=== PATIENT | male | born 1985 | race Caucasian/White ===

== ENCOUNTER 2019-01-26 08:52 | Emergency (ER) | payer MEDICAID, SELFPAY ==
--- NOTE | 2019-01-26 09:23 | NUR.NOTE ---
pt developed a fever and nausea last night that has progresses. recorded a fever of 102+ this am and has been taking naproxen
[2019-01-26 09:26] VITALS: BP 149/73; PULSE 104; RESP 15; TEMP 38.2; O2SAT 99
[2019-01-26] MEDS: Acetaminophen 500 MG TAB 1000 MG PO (09:40)
--- NOTE | 2019-01-26 09:45 | ED.GENADUL_ITS ---
Discharge Plan Disposition Patient Disposition: HOME Condition: Good Discharge Details Chief Complaint: Fever Clinical Impression: Viral URI Primary Care Provider: Chris Caraballo ED Provider: Joe Thacker Home Meds and New Rx's Prescriptions: New oseltamivir [Tamiflu] 75 mg capsule 75 mg PO BID 5 Days Qty: 10 RF: 0 No Action sulfamethoxazole-trimethoprim [Bactrim DS] 1 EACH tablet 1 tab-cap PO Q12H Qty: 14 RF: 0 hydrocortisone [Proctosol HC] 28.35 GM cream with perineal applicator 28.35 gm RC BID RF: 0 tramadol 100 MG tablet extended release 24 hr 100 mg PO Q6H Qty: 15 RF: 0 amoxicillin 500 MG tablet 500 mg PO TID Qty: 21 RF: 0 Discharge Instructions Instructions: Upper Respiratory Infection (ED) Additional Instructions: Please take 1000 mg of Tylenol and 800 mg of ibuprofen every 6 hours. Please drink plenty of fluids, at least 10-12 cups/day. If you notice any worsening of your symptoms, or any new symptoms such as vomiting, diarrhea, fever, chills, shortness of breath, chest pain, numbness, weakness, or fainting , please return immediately to the emergency department for reevaluation. Please follow up with your primary care provider as soon as possible for reassessment and reevaluation. As always, it was a pleasure participating in your medical care today. Stand Alone Forms: Work Release Referrals: Chris Caraballo, DO [Primary Care Provider] - Medical Decision Making This is a pleasant 33-year-old male who presents for signs and symptoms of URI, his symptoms started less than 12 hours ago, he has not had his flu shot. He shows no concerning clinical red flags of meningitis, severe neck pain, vomiting or diarrhea. He is able to tolerate p.o. well. Currently he looks well and shows signs and symptoms concerning for the flu. We will evaluate for the flu as he would be a candidate for Tamiflu. Recommend continued hydration, NSAIDs for fever, and rest. 9:54 Patient's influenza has returned positive. Clinically he still looks well I feel is a candidate for outpatient therapy. No concerning red flags or risk factors. Patient will be prescribed Tamiflu. I have extensively reviewed the treatment plan and discharge instructions with the patient. I have addressed all patient concerns at this time. The patient was made aware of what symptoms to monitor for that would warrant a return to the emergency department. Discussed the plan with the patient, they demonstrate verbal understanding and agreement with our assessment and plan at this time. HPI General Date/Time Provider Initiated Documentation: 01/26/19 09:31 . HPI Narrative: This is a 33-year-old male with no significant past medical history who presents today for symptoms of URI. Patient states that last evening he developed some congestion, runny nose, fevers and myalgias. He was febrile today at 102, he took Aleve, and this did bring his temperature down to 100.5. He admits to very mild headache but denies any neck pain. He has been drinking well. He denies any cough, shortness of breath, vomiting, or diarrhea. He does admit to mild nausea. He denies any other current complaints at this time. No other modifying factors. He did not get his flu shot this year. Related Data Home Medications Medication Instructions Recorded Confirmed tramadol 100 mg PO Q6H #15 tabcr 06/17/14 06/30/14 amoxicillin 500 mg PO TID #21 tablet 06/30/14 sulfamethoxazole-trimethoprim 1 tab-cap PO Q12H #14 tab-cap 10/15/15 [Bactrim Ds Tablet] hydrocortisone [Proctosol Hc 2.5%] 28.35 gm RC BID script 03/22/16 oseltamivir [Tamiflu] 75 mg PO BID 5 Days #10 cap 01/26/19 Previous Rx's Medication Instructions Recorded tramadol 100 mg PO Q6H #15 tabcr 06/17/14 amoxicillin 500 mg PO TID #21 tablet 06/30/14 oseltamivir [Tamiflu] 75 mg PO BID 5 Days #10 cap 01/26/19 Allergies Allergy/AdvReac Type Severity Reaction Status Date / Time kiwi AdvReac Severe Anaphylaxsi Unverified 06/30/14 01:18 s General Stated Complaint: Fever LENO: 4 Review of Systems Review of Systems All systems reviewed & are unremarkable except as noted in HPI and below PFSH Social History Smoking and Tabacco status: Never Exam Narrative Exam Narrative: 1.Const: Well-nourished, Well-developed, appearing stated age 2.Eyes: PERRL, no conjunctival injection, and symmetrical lids. 3.ENT: Atraumatic external nose and ears. Moist MM. Neck: Symmetric, trachea midline, No thyromegaly. Patient demonstrates good movement of cervical neck. There is no nuchal rigidity, no nuchal tenderness. Patient is able to flex the neck without any difficulty or significant pain. Negative Kernig's and Brudzinski sign. No significant erythema in the posterior oropharynx. No cervical lymphadenopathy. 4.CVS: +S1/S2, No murmurs or gallops. Peripheral pulses 2+ and equal in all extremities. Brisk capillary refill in all extremities. 5.RESP: Unlabored respiratory effort. Clear to auscultation bilaterally. No wheezes rales or rhonchi 6.GI: Soft, Nontender/Nondistended, No hepatosplenomegaly. No guarding or rebound. 7.MSK: Normocephalic/Atraumatic, Extremities w/o deformity or ttp No cyanosis or clubbing, Normal movement of all extremities 8.Skin: Warm, Dry. No rashes or lesions. 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 Sensation grossly intact, no focal neurologic deficits. 10.Psych: (AAO) x3. Appropriate mood and affect Course Vital Signs Temperature 38.2 C H 01/26/19 09:26 Pulse 104 H 01/26/19 09:26 Respiratory Rate 15 01/26/19 09:26 Blood Pressure 149/73 H 01/26/19 09:26 Pulse Oximetry 99 01/26/19 09:26 Temperature 38.2 C H 01/26/19 09:26 Temperature Source Skin 01/26/19 09:26 Pulse 104 H 01/26/19 09:26 Respiratory Rate 15 01/26/19 09:26 Blood Pressure 149/73 H 01/26/19 09:26 Blood Pressure Position Sitting 01/26/19 09:26 Pulse Oximetry 99 01/26/19 09:26 Oxygen Delivery Method Room Air 01/26/19 09:26 Oxygen Flow Rate 0 01/26/19 09:26 Pain Level 5 01/26/19 09:26 Lab/Test Results Lab/Test Results: 01/26/19 09:29 Nasopharynx Influenza Types A,B Antigen - Pending
[2019-01-26 10:10] VITALS: BP 149/73; PULSE 104; RESP 15; TEMP 38.2; O2SAT 99
== END 2019-01-26 10:07 | disposition home or self-care (01) ==
LOC: ER 10:07
PROVIDERS: Emergency Provider Student in an Organized Health Care Education/Training Program; PCP Emergency Medicine
DX: J10.1 Influenza due to other identified influenza virus with other respiratory manifestations (principal)
CPT/HCPCS: 87449; 99283